=== PATIENT | female | born 1965 | race Caucasian/White ===

== ENCOUNTER 2019-04-24 08:50 | Outpatient (CLI) | payer OTHER ==
[2019-04-24] MEDS ORDERED: LORA-439 PO (09:14)
[2019-04-24] MEDS ORDERED: MULT-658 PO (09:14)
== END 2019-04-24 23:59 | disposition home or self-care (01) ==
LOC: STAR 08:50
PROVIDERS: ATTEND Surgery Vascular Surgery
DX: Z02.9 Encounter for administrative examinations, unspecified (principal)

== ENCOUNTER 2019-05-04 05:53 | Day surgery (SDC) | payer OTHER ==
[~2019-05-04] VITALS: Ht 177.8 cm; Wt 90.6 kg
[~2019-05-04 05:53] MED LIST: LORA-439 PO; MULT-658 PO
[2019-05-04] MEDS ORDERED: LISI-170 PO (06:24)
[2019-05-04] MEDS ORDERED: METO25TA35 PO (06:24)
[2019-05-04] MEDS ORDERED: NIAC500C8 PO (06:24)
[2019-05-04] MEDS ORDERED: LACTATED RINGERS 1,000 ML IV SCH (06:25)
[2019-05-04] MEDS ORDERED: BACITRACIN 50,000 UNIT ONE (06:53)
[2019-05-04] MEDS ORDERED: BUPIVACAINE/EPI 0.5% 1:200K ONE (06:53)
[2019-05-04 07:03] LABS: HCG UR SG 1.011 (1.003-1.030)
[2019-05-04] MEDS ORDERED: PROPOFOL 50 ML ONE (07:06)
[2019-05-04] MEDS ORDERED: FENTANYL PF 250 MCG/5ML ONE (07:15)
[2019-05-04] MEDS ORDERED: MIDAZOLAM 1 MG/ML, 2ML ONE (07:15)
[2019-05-04] MEDS ORDERED: ONDANSETRON 2MG/ML, 2ML ONE (07:19)
[2019-05-04] MEDS ORDERED: DEXAMETHASONE 4 MG/ML, 1ML ONE (07:19)
[2019-05-04] MEDS ORDERED: KETOROLAC 30 MG/1 ML ONE (07:19)
[2019-05-04] MEDS ORDERED: CEFAZOLIN 1,000 MG ONE (07:19)
[2019-05-04] MEDS ORDERED: ROCURONIUM 10MG/ML,5ML ONE (07:19)
[2019-05-04] MEDS ORDERED: SUCCINYLCHOLINE 20 MG/ML, 10ML ONE (07:19)
[2019-05-04] MEDS ORDERED: ONDANSETRON 2MG/ML, 2ML IV PRN (07:30)
[2019-05-04] MEDS ORDERED: PROMETHAZINE 12.5 MG SUPP PR PRN (07:30)
[2019-05-04] MEDS ORDERED: FENTANYL PF 100 MCG/2ML IV PRN (07:30)
[2019-05-04] MEDS ORDERED: PROMETHAZINE 25 MG/ML, 1ML IV PRN (07:30)
[2019-05-04] MEDS ORDERED: DIAZEPAM 5 MG/ML, 2ML IVPush PRN (07:30)
[2019-05-04] MEDS ORDERED: EPHEDRINE 50 MG/ML, 1ML IM PRN (07:30)
[2019-05-04] MEDS ORDERED: OXYcodone 5 MG/5 ML ORAL.SOL UDC PO PRN (07:30)
[2019-05-04] MEDS ORDERED: MEPERIDINE/PF 25MG/0.5ML IVPush PRN (07:30)
[2019-05-04] MEDS ORDERED: PROMETHAZINE 25 MG SUPP PR PRN (07:30)
[2019-05-04] MEDS ORDERED: ONDANSETRON ODT 8 MG PO PRN (07:30)
[2019-05-04] MEDS ORDERED: DIPHENHYDRAMINE 50 MG/ML, 1ML IVPush PRN (07:30)
[2019-05-04] MEDS ORDERED: MORPHINE SULFATE 4 MG/ML, 1ML IVPush PRN (07:30)
[2019-05-04] MEDS ORDERED: MIDAZOLAM 1 MG/ML, 2ML IV PRN (07:30)
[2019-05-04] MEDS ORDERED: OXYcodone 5 MG/5 ML ORAL.SOL UDC ONE (08:28)
== END 2019-05-04 10:32 | disposition home or self-care (01) ==
LOC: OUT 05:53
PROVIDERS: ATTEND Surgery Vascular Surgery
DX: K42.0 Umbilical hernia with obstruction, without gangrene (principal); M79.89 Other specified soft tissue disorders; I10 Essential (primary) hypertension
CPT/HCPCS: 21555; 49587; 81025; 93005; J0330; J0690; J1100; J1885; J2250; J2405; J2704; J3010; J7120; C1781

== ENCOUNTER 2019-07-07 08:42 | Outpatient (CLI) | payer OTHER | END 2019-07-07 23:59 | disposition home or self-care (01) | LOC: CFH 08:42 | PROVIDERS: ATTEND Internal Medicine Cardiovascular Disease | DX: R94.31 Abnormal electrocardiogram [ECG] [EKG] (principal); I10 Essential (primary) hypertension | CPT/HCPCS: 93306 ==